=== PATIENT | male | born 1950 ===

== ENCOUNTER 2023-11-08 06:00 | Outpatient (RCR) | payer MEDICARE, SELFPAY | END 2023-12-05 23:59 | disposition home or self-care (01) | LOC: GPT 06:00 | PROVIDERS: Visit Provider Nurse Practitioner Acute Care | DX: M47.896 Other spondylosis, lumbar region (principal) | CPT/HCPCS: 97110; 97112; 97162 ==

== ENCOUNTER 2023-12-06 06:00 | Outpatient (RCR) | payer MEDICARE, SELFPAY | END 2024-01-05 23:59 | disposition home or self-care (01) | LOC: GPT 06:00 | PROVIDERS: Visit Provider Nurse Practitioner Acute Care | DX: M47.896 Other spondylosis, lumbar region (principal) | CPT/HCPCS: 97110; 97112; 97164; 97530 ==

== ENCOUNTER 2024-01-06 06:00 | Outpatient (RCR) | payer MEDICARE, SELFPAY | END 2024-02-05 23:59 | disposition home or self-care (01) | LOC: GPT 06:00 | PROVIDERS: Visit Provider Nurse Practitioner Acute Care | DX: M47.896 Other spondylosis, lumbar region (principal) | CPT/HCPCS: 97110; 97140 ==

== ENCOUNTER 2024-02-25 06:00 | Outpatient (RCR) | payer MEDICARE, SELFPAY | END 2024-03-06 23:59 | disposition home or self-care (01) | LOC: GPT 06:00 | PROVIDERS: Visit Provider Orthopaedic Surgery | DX: M25.511 Pain in right shoulder (principal) | CPT/HCPCS: 97110; 97112; 97140; 97161 ==

== ENCOUNTER 2024-03-07 06:00 | Outpatient (RCR) | payer MEDICARE, SELFPAY | END 2024-04-06 23:59 | disposition home or self-care (01) | LOC: GPT 06:00 | PROVIDERS: Visit Provider Orthopaedic Surgery | DX: M25.511 Pain in right shoulder (principal) | CPT/HCPCS: 97110; 97140; 97530 ==

== ENCOUNTER 2024-04-07 06:00 | Outpatient (RCR) | payer MEDICARE, SELFPAY | END 2024-05-06 23:59 | disposition home or self-care (01) | LOC: GPT 06:00 | PROVIDERS: Visit Provider Orthopaedic Surgery | DX: M25.511 Pain in right shoulder (principal) | CPT/HCPCS: 97110; 97164; 97530 ==

== ENCOUNTER → 2025-03-29 10:52 | Outpatient (BNVA) | payer MEDICARE, SELFPAY | PROVIDERS: Visit Provider Nurse Practitioner Family | DX: Z01.89 Encounter for other specified special examinations (principal); W19.XXXA Unspecified fall, initial encounter | CPT/HCPCS: 73501; 73521 ==